=== PATIENT | female | born 1975 | race African-American/Black ===

== ENCOUNTER 2018-11-11 08:55 | Emergency (ER) | payer MEDICAID ==
[~2018-11-11] VITALS: Ht 180.3 cm; Wt 90.7 kg
[~2018-11-11 08:55] MED LIST: CLINDAMYCIN HC300 MG ORAL
[2018-11-11] MEDS ORDERED: METFORMIN HCL500 M1 ORAL (09:14)
[2018-11-11] MEDS ORDERED: BACTRIM DS TAB1 EAC1 ORAL (09:14)
--- NOTE | 2018-11-11 09:14 | NUR ---
ED Nurse Note: pt walked in due to skni redness on the left lef, pt stated that it is from an insect bite. pt is complaining of 7/10 pain upon changing position. ermd on bedside. will continue to monitor
[2018-11-11] MEDS ORDERED: Acetaminophen 500mg (ES) tab ORAL ONE (09:15)
[2018-11-11 10:27] VITALS: BP 138/84
--- NOTE | 2018-11-11 10:27 | NUR ---
ER DISCHARGE NOTE: Patient is cleared to be discharged per ERMD, pt is aox4, on room air, with stable vital signs. pt was given dc and prescription instructions, pt was able to verbalize understanding, pt id band removed without complications. pt is able to ambulate with steady gait. pt took all belongings.
--- NOTE | 2018-11-11 10:28 | Emergency Room Report ---
History of Present Illness General Chief Complaint: Lower Extremity Injury Source: Patient Present Illness HPI Patient is a 43-year-old female presented after increased bilateral lower extremity pain. Patient reports having a recent insect bites. She states she has had this for 2-3 days. She reports having increased itchiness as well as discomfort to the lower extremities. She had similar symptoms in the past. Patient denies any fever. She denies any prior medical history. She denies prior history of diabetes or immunocompromise. Allergies: Coded Allergies: AMOXICILLIN (Verified Allergy, Unknown, 03/19/16) Patient History Past Medical History: see triage record Last Menstrual Period: last month Now: No Reviewed Nursing Documentation: PMH: Agreed; PSxH: Agreed Nursing Documentation-PMH Past Medical History: No Stated History Review of Systems All Other Systems: negative except mentioned in HPI Physical Exam Vital Signs Date Time Temp Pulse Resp B/P (MAP) Pulse Ox O2 Delivery O2 Flow Rate FiO2 11/11/18 08:58 98.4 90 20 156/94 98 Room Air General Appearance: well appearing, no apparent distress, alert, obese Head: normocephalic, atraumatic ENT: hearing grossly normal, normal voice Neck: full range of motion, supple Respiratory: no respiratory distress, speaking full sentences Musculoskeletal: normal inspection, other - slight patchy erythema without any fluctuance Neurologic: normal inspection, alert, oriented x3, responsive, normal gait Psychiatric: mood/affect normal Skin: other - erythema and warmth to left medial calf. Medical Decision Making Diagnostic Impression: Primary Impression: Cellulitis, leg ER Course . Patient presented for skin rash. Differential diagnosis include was not limited to abscess, cellulitis, necrotizing fasciitis, brown recluse bite among others. Patient has a benign exam and does not appear to require any further imaging or laboratory testing at this time. Patient appears to have some insect bites with secondary infection. Patient given prescription for Bactrim. She was advised to follow-up with her primary care physician. Blood sugar was noted to be slightly elevated and patient was given prescription for metformin. Patient was to return for worsening pain , fever or or other concerns. Last Vital Signs Date Time Temp Pulse Resp B/P (MAP) Pulse Ox O2 Delivery O2 Flow Rate FiO2 11/11/18 08:58 98.4 90 20 156/94 98 Room Air Status: improved Disposition: HOME, SELF-CARE Condition: Stable Scripts Metformin Hcl* (METFORMIN HCL*) 500 Mg Tablet 500 MG ORAL TWICE A DAY, #30 TAB Prov: Jeffery Mehta MD 11/11/18 Trimethoprim/Sulfamethoxazole 160/800* (BACTRIM DS TABLET*) 1 Each Tablet 1 TAB ORAL Q12H, #14 TAB 0 Refills Prov: Jeffery Mehta MD 11/11/18 Referrals: NOT CHOSEN IPA/,REFERRING (PCP) Patient Instructions: Cellulitis Jeffery Mehta MD Nov 11, 2018 10:28
== END 2018-11-11 10:27 | disposition home or self-care (01) ==
LOC: EMR 09:31
DX: L03.116 Cellulitis of left lower limb (principal)
CPT/HCPCS: 99282